=== PATIENT | female | born 1975 | race Caucasian/White ===

== ENCOUNTER 2023-11-07 17:30 | Emergency (ER) | payer BC ==
[2023-11-07 20:44] LABS: BASOPHILS ABSOLUTE AUTO 0.03 K/uL (0.00-0.20); BASOPHILS PERCENT AUTO 0.7 % (0.0-1.0); EOSINOPHILS ABSOLUTE AUTO 0.07 K/uL (0.00-0.45); EOSINOPHILS PERCENT AUTO 1.7 % (0.0-6.0); HEMATOCRIT 45.1 % (37.0-47.0); HEMOGLOBIN 15.7 g/dL (12.0-16.0); IMMATURE GRAN ABSOLUTE AUTO 0.01 K/uL (0.00-0.05); IMMATURE GRAN PERCENT AUTO 0.2 % (0.0-0.4); LYMPHOCYTES PERCENT AUTO 42.9 % (24.0-44.0); MEAN CORPUSCULAR HEMOGLOBIN 29.6 pg (28.0-32.0); MEAN CORPUSCULAR HGB CONC 34.8 g/dL (32.0-36.0); MEAN CORPUSCULAR VOLUME 84.9 fL (83.0-99.0); MEAN PLATELET VOLUME 10.1 fL (9.4-12.3); MONOCYTES ABSOLUTE AUTO 0.46 K/uL (0.00-0.80); NEUTROPHILS ABSOLUTE AUTO 1.83 K/uL (1.80-7.70); NEUTROPHILS PERCENT AUTO 43.5 % (41.0-71.0); PLATELET COUNT,PLT 290 K/uL (150-400); RED BLOOD CELL COUNT 5.31 M/uL (4.10-5.30)
[2023-11-07 21:28] LABS: A/G RATIO 0.9 (0.9-1.6); ALBUMIN 3.7 g/dL (3.4-5.0); BILIRUBIN TOTAL 0.5 mg/dL (0.2-1.0); CALCIUM 9.4 mg/dL (8.5-10.1); CARBON DIOXIDE,CO2 21.4 mmol/L (21.0-32.0); EST CRCL DRUG DOSING (CG) 62.58 mL/min; POTASSIUM,K 3.2 mmol/L (3.5-5.1)
[2023-11-07] MEDS ORDERED: Sodium Chloride 0.9% 1,000 ML IV ONE (21:51)
== END 2023-11-07 22:09 | disposition home or self-care (01) ==
LOC: MW.ED 17:30
DX: R51.9 Headache, unspecified (principal); R20.2 Paresthesia of skin; E03.9 Hypothyroidism, unspecified; Z79.899 Other long term (current) drug therapy
CPT/HCPCS: 36415; 70450; 70450-26; 80053; 81025; 85025; 99282; 99284